=== PATIENT | female | born 1970 | race Caucasian/White ===

== ENCOUNTER 2018-05-25 13:05 | Emergency (ER) | payer BC ==
[2018-05-25 13:17] VITALS: RESP 18
[2018-05-25] MEDS ORDERED: SODIUM CHLORIDE 0.9% 1,000 ML IV STA (13:57)
[2018-05-25] MEDS ORDERED: ONDANSETRON 4 MG/2 ML VIAL IVP STA (13:57)
[2018-05-25] MEDS ORDERED: KETOROLAC 30 MG/ML 1 ML VIAL IVP STA (13:57)
--- NOTE | 2018-05-25 14:00 | ED ---
General Adult HPI - General Chief complaint: Abdominal Pain Stated complaint: Abd Pain Time Seen by Provider: 05/25/18 13:46 Source: patient, RN notes reviewed Mode of arrival: ambulatory Limitations: no limitations - History of Present Illness Initial comments: 47-year-old female with a past medical history of IBS presents to the emergency department for chief complete of right upper quadrant pain 4 days. Patient states this started Friday. She states pain is in the right upper quadrant and sometimes radiates to her back. Patient states the pain is worse after she eats and causes the upper part of her stomach to blow. Patient does admit to s omewhat heavy drinking. States she did drink 2 beers before this occurred Friday. Patient denies any abdominal surgeries besides pyloristenosis surgery when she was 3 months old.Patient has no other complaints at this time including shortness of breath, chest pain,vomiting, headache, or visual changes. - Related Data Home Medications Medication Instructions Recorded Confirmed Ibuprofen [Motrin Ib] 200 mg PO Q6H PRN 05/25/18 05/25/18 Sertraline [Zoloft] 100 mg PO DAILY 05/25/18 05/25/18 Allergies Allergy/AdvReac Type Severity Reaction Status Date / Time latex Allergy Rash/Hives Verified 05/25/18 14:06 gluten AdvReac Severe fatigue/nausea/joint Verified 05/25/18 14:06 pain Review of Systems ROS Statement: Those systems with pertinent positive or pertinent negative responses have been documented in the HPI. ROS Other: All systems not noted in ROS Statement are negative. Past Medical History Additional Past Medical History / Comment(s): IBS History of Any Multi-Drug Resistant Organisms: None Reported Past Surgical History: Heart Catheterization Additional Past Surgical History / Comment(s): PYLORIC STENOSIS REPAIR I NFANT. BILAT EYE SURGERIES FOR LAZY EYE. SALIVARY GLAND REMOVED FROM THROAT- 2000. BILAT SHOULDER SURGERIES FOR BONE SPURS Past Anesthesia/Blood Transfusion Reactions: No Reported Reaction Past Psychological History: Depression Smoking Status: Current every day smoker Past Alcohol Use History: Occasional Past Drug Use History: None Reported General Exam Limitations: no limitations General appearance: alert, in no apparent distress Head exam: Present: atraumatic, normocephalic, normal inspection Eye exam: Present: normal appearance, PERRL, EOMI. Absent: scleral icterus, conjunctival injection ENT exam: Present: normal exam, mucous membranes moist Neck exam: Present: normal inspection, full ROM. Absent: tenderness, meningismus, lymphadenopathy Respiratory exam: Present: normal lung sounds bilaterally. Absent: respiratory distress, wheezes, rales, rhonchi, stridor Cardiovascular Exam: Present: regular rate, normal rhythm, normal heart sounds. Absent: systolic murmur, diastolic murmur, rubs, gallop, clicks GI/Abdominal exam: Present: soft, tenderness (Tenderness in the right upper quadrant with mild guarding, negative Gardner sign significant lower abdominal tenderness), normal bowel sounds. Absent: distended, guarding, rebound, rigid Expanded GI/Abdominal exam: Absent: obturator sign, heel tap sign, Gardner's sign, Rovsing's sign, tenderness at McBurney's Point Neurological exam: Present: alert, oriented X3, CN II-XII intact Psychiatric exam: Present: normal affect, normal mood Course Vital Signs 05/25/18 13:14 Temperature 97.9 F Pulse Rate 88 Respiratory 18 Rate Blood Pressure 124/80 O2 Sat by Pulse 98 Oximetry EKG Findings - EKG Comments: EKG Findings:: Normal sinus rhythm, ventricular rate 75, CO interval 176, QRS temple 82, QTc 442, no evidence of ST elevation or depression Medical Decision Making - Medical Decision Making 47-year-old female with a past medical history of IBS presents to the emergency department for a chief complaint of postprandial right upper quadrant pain 4 days. Sometimes radiates to her back. Pain is worse after eating and states she feels bloated after eating. Also admits to nausea. On exam patient does have right upper quadrant tenderness with minimal epigastric tenderness, no lower abdominal tenderness. CBC CMP unremarkable. Urine does show 14 white blood cells and 12 red blood cells however there are squamous epithelial cells. Will be cultured. X-ray of the abdomen shows nonspecific bowel pattern, no pneumoperitoneum present. Ultrasound of the gallbladder shows a polyp versus n on-shadowing stone in the gallbladder. EKG shows a normal sinus rhythm without evidence of ST elevation or depression. Troponin negative. At this time it is felt that she can follow up outpatient and patient will be referred to GI. She also has an appointment with her primary care doctor in 2 days. She will return here if she has any worsening symptoms. - Lab Data Result diagrams: 05/25/18 13:50 05/25/18 13:50 Lab Results 05/25/18 05/25/18 05/25/18 Range/Units 13:50 13:50 13:50 WBC 6.5 (3.8-10.6) k/uL RBC 4.73 (3.80-5.40) m/uL Hgb 13.2 (11.4-16.0) gm/dL Hct 40.8 (34.0-46.0) % MCV 86.4 (80.0-100.0) fL MCH 27.9 (25.0-35.0) pg MCHC 32.3 (31.0-37.0) g/dL RDW 13.5 (11.5-15.5) % Plt Count 199 (150-450) k/uL Neutrophils % 70 % Lymphocytes % 22 % Monocytes % 5 % Eosinophils % 2 % Basophils % 0 % Neutrophils # 4.5 (1.3-7.7) k/uL Lymphocytes # 1.4 (1.0-4.8) k/uL Monocytes # 0.3 (0-1.0) k/uL Eosinophils # 0.1 (0-0.7) k/uL Basophils # 0.0 (0-0.2) k/uL Sodium 139 (137-145) mmol/L Potassium 3.9 (3.5-5.1) mmol/L Chloride 107 (98-107) mmol/L Carbon Dioxide 24 (22-30) mmol/L Anion Gap 8 mmol/L BUN 10 (7-17) mg/dL Creatinine 0.65 (0.52-1.04) mg/dL Est GFR (CKD-EPI)AfAm >90 (>60 ml/min/1.73 sqM) Est GFR (CKD-EPI)NonAf >90 (>60 ml/min/1.73 sqM) Glucose 121 H (74-99) mg/dL Calcium 9.4 (8.4-10.2) mg/dL Magnesium 1.5 L (1.6-2.3) mg/dL Total Bilirubin 0.4 (0.2-1.3) mg/dL AST 15 (14-36) U/L ALT 17 (9-52) U/L Alkaline Phosphatase 64 (38-126) U/L Troponin I (0.000-0.034) ng/mL Total Protein 6.6 (6.3-8.2) g/dL Albumin 4.1 (3.5-5.0) g/dL Amylase 36 (30-110) U/L Lipase 82 (23-300) U/L Urine Color Yellow Urine Appearance Cloudy H (Clear) Urine pH 6.0 (5.0-8.0) Ur Specific Mellott 1.027 (1.001-1.035) Urine Protein Trace H (Negative) Urine Glucose (UA) Negative (Negative) Urine Ketones Trace H (Negative) Urine Blood Moderate H (Negative) Urine Nitrite Negative (Negative) Urine Bilirubin Negative (Negative) Urine Urobilinogen 4.0 (<2.0) mg/dL Ur Leukocyte Esterase Small H (Negative) Urine RBC 12 H (0-5) /hpf Urine WBC 14 H (0-5) /hpf Ur Squamous Epith Cells 18 H (0-4) /hpf Urine Bacteria Occasional H (None) /hpf Urine Mucus Few H (None) /hpf Urine HCG, Qual (Not Detectd) 05/25/18 05/25/18 Range/Units 13:50 13:50 WBC (3.8-10.6) k/uL RBC (3.80-5.40) m/uL Hgb (11.4-16.0) gm/dL Hct (34.0-46.0) % MCV (80.0-100.0) fL MCH (25.0-35.0) pg MCHC (31.0-37.0) g/dL RDW (11.5-15.5) % Plt Count (150-450) k/uL Neutrophils % % Lymphocytes % % Monocytes % % Eosinophils % % Basophils % % Neutrophils # (1.3-7.7) k/uL Lymphocytes # (1.0-4.8) k/uL Monocytes # (0-1.0) k/uL Eosinophils # (0-0.7) k/uL Basophils # (0-0.2) k/uL Sodium (137-145) mmol/L Potassium (3.5-5.1) mmol/L Chloride (98-107) mmol/L Carbon Dioxide (22-30) mmol/L Anion Gap mmol/L BUN (7-17) mg/dL Creatinine (0.52-1.04) mg/dL Est GFR (CKD-EPI)AfAm (>60 ml/min/1.73 sqM) Est GFR (CKD-EPI)NonAf (>60 ml/min/1.73 sqM) Glucose (74-99) mg/dL Calcium (8.4-10.2) mg/dL Magnesium (1.6-2.3) mg/dL Total Bilirubin (0.2-1.3) mg/dL AST (14-36) U/L ALT (9-52) U/L Alkaline Phosphatase (38-126) U/L Troponin I <0.012 (0.000-0.034) ng/mL Total Protein (6.3-8.2) g/dL Albumin (3.5-5.0) g/dL Amylase (30-110) U/L Lipase (23-300) U/L Urine Color Urine Appearance (Clear) Urine pH (5.0-8.0) Ur Specific Mellott (1.001-1.035) Urine Protein (Negative) Urine Glucose (UA) (Negative) Urine Ketones (Negative) Urine Blood (Negative) Urine Nitrite (Negative) Urine Bilirubin (Negative) Urine Urobilinogen (<2.0) mg/dL Ur Leukocyte Esterase (Negative) Urine RBC (0-5) /hpf Urine WBC (0-5) /hpf Ur Squamous Epith Cells (0-4) /hpf Urine Bacteria (None) /hpf Urine Mucus (None) /hpf Urine HCG, Qual Not Detected (Not Detectd) - EKG Data -: EKG Interpreted by Me (and Dr Hobbs) Disposition Clinical Impression: Abdominal pain Disposition: HOME SELF-CARE Condition: Good Instructions (If sedation given, give patient instructions): Abdominal Pain (ED) Additional Instructions: Please follow up with primary care at your appointment in 2 days as well as GI. Please return to the emergency department if you have any worsening symptoms. Is patient prescribed a controlled substance at d/c from ED?: No Referrals: Hellen Alves MD [Primary Care Provider] - 1-2 days Blake Mathews MD [STAFF PHYSICIAN] - 1-2 days Time of Disposition: 15:36
[2018-05-25 14:19] LABS: Basophils % (A) 0 %; Eosinophils # (A) 0.1 k/uL (0-0.7); Eosinophils % (A) 2 %; HCT 40.8 % (34.0-46.0); HGB 13.2 gm/dL (11.4-16.0); Lymphocytes # (A) 1.4 k/uL (1.0-4.8); Lymphocytes % (A) 22 %; MCH 27.9 pg (25.0-35.0); MCHC 32.3 g/dL (31.0-37.0); MCV 86.4 fL (80.0-100.0); Mean Platelet Volume 7.5; Monocytes # (A) 0.3 k/uL (0-1.0); Monocytes % (A) 5 %; Neutrophils # (A) 4.5 k/uL (1.3-7.7); Neutrophils % (A) 70 %; Platelet Count 199 k/uL (150-450); RBC 4.73 m/uL (3.80-5.40); RDW 13.5 % (11.5-15.5); WBC 6.5 k/uL (3.8-10.6)
[2018-05-25 14:26] LABS: Appearance,Urine Cloudy (Clear); Bacteria,Urine Occasional /hpf; Bilirubin,Urine Negative (Negative); Blood,Urine Moderate (Negative); Color,Urine Yellow; Glucose,Urine (UA) Negative (Negative); Ketones,Urine Trace (Negative); Leukocyte Esterase,Urine Small (Negative); Mucus,Urine Few /hpf; Nitrite,Urine Negative (Negative); Protein,Urine Trace (Negative); RBC,Urine 12 /hpf (0-5); Specific Gravity,Urine 1.027 (1.001-1.035); Squamous Epithelial Cell,Urine 18 /hpf (0-4); WBC,Urine 14 /hpf (0-5)
[2018-05-25 14:28] LABS: ALT 17 U/L (9-52); AST 15 U/L (14-36); Albumin 4.1 g/dL (3.5-5.0); Alkaline Phosphatase 64 U/L (38-126); Amylase 36 U/L (30-110); Anion Gap 8 mmol/L; Blood Urea Nitrogen 10 mg/dL (7-17); Calcium 9.4 mg/dL (8.4-10.2); Carbon Dioxide 24 mmol/L (22-30); Chloride 107 mmol/L (98-107); Glucose 121 mg/dL (74-99); Lipase 82 U/L (23-300); Magnesium 1.5 mg/dL (1.6-2.3); Potassium 3.9 mmol/L (3.5-5.1); Sodium 139 mmol/L (137-145); Total Bilirubin 0.4 mg/dL (0.2-1.3); Total Protein 6.6 g/dL (6.3-8.2)
--- NOTE | 2018-05-25 14:45 | XR ---
EXAMINATION TYPE: XR abdomen 2V DATE OF EXAM: 05/25/2018 COMPARISON: NONE HISTORY: Pain TECHNIQUE: One view abdominal series FINDINGS: The osseous structures are intact. The bowel gas pattern is nonspecific. Lung bases are clear. Ther e is a 3 mm right upper quadrant calcification. Calcifications in the pelvis are nonspecific but felt to BE most likely vascular phleboliths. IMPRESSION: 1. Nonspecific abdomen. 2. 3 mm right upper quadrant calcification most likely in the basis of a renal calculus. Correlate cl inically.
--- NOTE | 2018-05-25 15:11 | US ---
EXAMINATION TYPE: US abdomen limited DATE OF EXAM: 05/25/2018 COMPARISON: NONE CLINICAL HISTORY: post prandial RUQ pain. abd pain x 3 days EXAM MEASUREMENTS: Liver Length: 19.3 cm Gallbladder Wall: 0.1 cm CBD: 0.6 cm Right Kidney: 11.1 x 4.5 x 4.6 cm Pancreas: wnl Liver: wnl Gallbladder: 0.3cm non shadowing, non mobile fundal polyp seen Evidence for sonographic Gardner's sign: no CBD: wnl Right Kidney: wnl IMPRESSION: Nonshadowing 3 mm echogenic structure within the gallbladder most likely related to a philip yp rather than nonshadowing stone. Correlate clinically.
[2018-05-25] MEDS ORDERED: ACET/COD 300 MG/30 MG STARTER PACK 6 TAB BTL PO STA (15:59)
[2018-05-25 16:09] VITALS: BP 131/79; PULSE 67; TEMP 98.2
== END 2018-05-25 16:07 | disposition home or self-care (01) ==
LOC: EC 13:05
DX: R10.11 Right upper quadrant pain (principal); R11.0 Nausea; R10.811 Right upper quadrant abdominal tenderness; R10.816 Epigastric abdominal tenderness; F17.200 Nicotine dependence, unspecified, uncomplicated; F32.9 Major depressive disorder, single episode, unspecified; Z79.899 Other long term (current) drug therapy; Z91.040 Latex allergy status; Z91.048 Other nonmedicinal substance allergy status; Z95.5 Presence of coronary angioplasty implant and graft
CPT/HCPCS: 36415; 93005; 80053; 82150; 83690; 83735; 84484; 85025; 81001; 81025; 87086; 74019; 76705; 99284; 96374; 96375; 96361; J2405; J1885

== ENCOUNTER → 2019-03-15 | Outpatient (CLI) | payer BC ==
--- NOTE | 2019-03-15 11:32 | XR ---
EXAMINATION TYPE: XR chest 2V DATE OF EXAM: 03/15/2019 COMPARISON: Prior chest x-ray 11/03/2015 HISTORY: Cough, right shoulder pain TECHNIQUE: Frontal and lateral views of the chest are obtained. FINDINGS: There is no focal air space opacity, pleural effusion, or pneumothorax seen. The cardiac silhouette size is within normal limits. The osseous structures are intact. Surgical clips present in the right upper quadrant. IMPRESSION: No acute cardiopulmonary process.
== END ==
LOC: RADXRMAIN 09:54
PROVIDERS: ATTEND Family Medicine
DX: R05 Cough (principal)
CPT/HCPCS: 71046

== ENCOUNTER → 2020-03-09 | Outpatient (CLI) | payer BC ==
--- NOTE | 2020-03-09 11:02 | US ---
EXAMINATION TYPE: US kidneys/renal and bladder DATE OF EXAM: 03/09/2020 COMPARISON: CLINICAL HISTORY: N20.1 CALCULUS OF URETER. Right side pain. patient states having a stone in tube. EXAM MEASUREMENTS: Right Kidney: 10.3 x 4.4 x 4.8 cm Left Kidney: 10.8 x 4.7 x 4.7 cm Right Kidney: medial anechoic lesion visualized, dilated renal pelvis vs mild hydronephrosis. Left Kidney: medial anechoic lesion visualized, dilated renal pelvis vs mild hydronephrosis. Bladder: mildly distended, wnl Bilateral Jets seen There is mild fullness right renal pelvis. [id number] fullness left renal pelvis with calyceal prominence. No nephrolithiasis is seen bilaterally. No masses are identified and images saved. The urinary bladder is not greatly distended. Bilateral ureteral jets are seen. IMPRESSION: Mild to moderate left greater than right hydronephrosis suspected. No complete obstructio n as bilateral distal ureter jets are seen. Consider follow-up functional study or CT evaluation.
== END | disposition home or self-care (01) ==
LOC: RADUSWWP 09:22
PROVIDERS: ATTEND Urology
DX: N20.1 Calculus of ureter (principal)
CPT/HCPCS: 76770

== ENCOUNTER → 2020-03-20 | Outpatient (CLI) | payer BC ==
--- NOTE | 2020-03-20 11:55 | CT ---
EXAMINATION TYPE: CT abdomen pelvis wo con DATE OF EXAM: 03/20/2020 COMPARISON: None HISTORY: Calculus of ureter CT DLP: 423.8 mGycm Examination of the solid and hollow viscera is limited given the lack of contrast. FINDINGS: LUNG BASES: No evidence for nodule. No evidence for infiltrate. LIVER/GB: The gallbladder is unremarkable. No space-occupying hepatic lesion. PANCREAS: No pancreatic mass identified. No inflammatory process seen. SPLEEN: No evidence for splenomegaly. No intrasplenic lesions seen. ADRENALS: No adrenal nodules identified. No evidence for thickening. KIDNEYS: No evidence for renal mass. 5.3 mm calculus proximal right ureter just distal to the right U PJ with mild right-sided hydronephrosis suggested. 3 mm nonobstructing calculus lower pole left kidne y. No evidence for left-sided hydronephrosis. BOWEL: Appendix has a normal appearance. No evidence of bowel obstruction. No inflammatory process. Lymph nodes: No evidence for adenopathy greater than 1 cm. Abdominal aorta: Atheromatous changes seen. No evidence for aneurysm. Genital organs: No significant abnormality. Other: No significant abnormality. IMPRESSION: 5.3 mm calculus proximal right ureter just distal to the right UPJ with mild right-sided hydronephros is suggested. 3 mm nonobstructing calculus lower pole left kidney.
== END | disposition home or self-care (01) ==
LOC: RADCTMAIN 11:17
PROVIDERS: ATTEND Urology
DX: N20.1 Calculus of ureter (principal); N20.0 Calculus of kidney; Z91.040 Latex allergy status; Z88.8 Allergy status to other drugs, medicaments and biological substances; Z91.018 Allergy to other foods
CPT/HCPCS: 74176

== ENCOUNTER → 2020-04-13 | Outpatient (CLI) | payer BC, OTHER ==
[2020-04-13 10:25] LABS: African American GFR (CKD) >90 (>60 ml/min/1.73 sqM); Anion Gap 8 mmol/L; Blood Urea Nitrogen 15 mg/dL (7-17); Carbon Dioxide 27 mmol/L (22-30); Chloride 101 mmol/L (98-107); Glucose 95 mg/dL (74-99); Non-African American GFR(CKD) 80 (>60 ml/min/1.73 sqM); Potassium 5.4 mmol/L (3.5-5.1); Sodium 136 mmol/L (137-145)
[2020-04-13 10:34] LABS: Appearance,Urine Clear (Clear); Bilirubin,Urine Negative (Negative); Blood,Urine Small (Negative); Color,Urine Yellow; Glucose,Urine (UA) Negative (Negative); Ketones,Urine Negative (Negative); Leukocyte Esterase,Urine Negative (Negative); Mucus,Urine Occasional /hpf; Nitrite,Urine Negative (Negative); Protein,Urine Negative (Negative); RBC,Urine 15 /hpf (0-5); Squamous Epithelial Cell,Urine 2 /hpf (0-4); Urobilinogen,Urine <2.0 mg/dL (<2.0); WBC,Urine 4 /hpf (0-5)
[2020-04-13 10:36] LABS: Basophils # (A) 0.1 k/uL (0-0.2); Basophils % (A) 1 %; Eosinophils # (A) 0.1 k/uL (0-0.7); Eosinophils % (A) 2 %; HCT 44.8 % (34.0-46.0); HGB 14.6 gm/dL (11.4-16.0); Lymphocytes # (A) 1.7 k/uL (1.0-4.8); Lymphocytes % (A) 26 %; MCH 29.2 pg (25.0-35.0); MCHC 32.5 g/dL (31.0-37.0); MCV 89.8 fL (80.0-100.0); Mean Platelet Volume 7.7; Monocytes # (A) 0.4 k/uL (0-1.0); Monocytes % (A) 6 %; Neutrophils # (A) 4.1 k/uL (1.3-7.7); Neutrophils % (A) 64 %; Platelet Count 200 k/uL (150-450); RBC 4.99 m/uL (3.80-5.40); RDW 13.2 % (11.5-15.5); WBC 6.5 k/uL (3.8-10.6)
== END | disposition home or self-care (01) ==
LOC: LABPAT 09:45
PROVIDERS: ATTEND Urology
DX: Z01.818 Encounter for other preprocedural examination (principal); N20.1 Calculus of ureter; R31.29 Other microscopic hematuria
CPT/HCPCS: 36415; 80048; 81001; 85025; 87086

== ENCOUNTER 2020-04-20 10:44 | Day surgery (SDC) | payer BC, OTHER ==
[2020-04-14 16:08] VITALS: BMI 25.8
--- NOTE | 2020-04-19 13:37 | P.HPIHPCON ---
History of Present Illness H&P Date: 04/19/20 49-year-old female with history of a 5 mm right-sided proximal stone. Multiple small left renal stone. She has failed medical expulsive therapy for her stone. Discussed with her the option of doing a ureteroscopy versus ESWL. Discussed the risk and benefit of each approach. She agreed to proceed right-sided ureteroscopy. She also wanted her left-sided renal stones addressed, I did discussed with her the stones are fairly small and most likely she will be able to pass spontaneously. Discussed that we'll attempt to do a left-sided ureteroscopy in the same setting. Discussed with her the risk of the procedure which includes but not limited to bleeding, infection, injury to the ureter Consent for Procedure: I have explained the operation/procedure to the patient, including the risks, benefits, side effects, alternative therapies (including not receiving the proposed treatment or service), the likelihood of the patient achieving his/her goals, and potential recuperation problems for the procedure/sedation/analgesia, as well as any blood products, if indicated. I also explained to the patient the risks, benefits and side effects of the alternatives, as well as the risks related to not receiving the proposed procedure, care, treatment, or services. Past Medical History Additional Past Medical History / Comment(s): IBS. KIDNEY STONES History of Any Multi-Drug Resistant Organisms: None Reported Past Surgical History: Cholecystectomy, Heart Catheterization Additional Past Surgical History / Comment(s): PYLORIC STENOSIS REPAIR INFANT. BILAT EYE SURGERIES FOR LAZY EYE. SALIVARY GLAND REMOVED FROM THROAT- 2000. BILAT SHOULDER SURGERIES FOR BONE SPURS. COLONOSCOPY Past Anesthesia/Blood Transfusion Reactions: No Reported Reaction Smoking Status: Current every day smoker - Past Family History Mother Family Medical History: No Reported History Medications and Allergies Home Medications Medication Instructions Recorded Confirmed Type Ibuprofen [Motrin Ib] 200 mg PO Q6H PRN 05/25/18 04/14/20 History Sertraline [Zoloft] 100 mg PO DAILY 05/25/18 04/14/20 History Allergies Allergy/AdvReac Type Severity Reaction Status Date / Time latex Allergy Rash/Hives Verified 04/14/20 15:53 tamsulosin [From Flomax] Allergy FACIAL Verified 04/14/20 15:53 SWELLING AND SLURRING SPEECH gluten AdvReac Severe fatigue/nausea/joint Verified 04/14/20 15:53 pain Surgical - Exam - General well developed, well nourished, no distress, no pain - Respiratory normal expansion, normal respiratory effort - Abdomen Abdomen: soft, non tender Assessment and Plan Assessment: OR for right-sided ureteroscopy, holmium laser lithotripsy, stone basketing and stent insertion. Possible left-sided ureteroscopy with holmium laser and stent placement
[~2020-04-20 10:44] MED LIST: DEXAMETHASONE SOD PHOSPHATE 4 MG/ML 1 ML VIAL IV ONE; HYDROmorphone 0.5 MG/0.5 ML SYRINGE IVP PRN; LACTATED RINGERS 1,000 ML IV SCH; LIDOCAINE 1% (10MG/ML) FOR IV START INTRADERMA PRN; ONDANSETRON 4 MG/2 ML VIAL IVP ONE; SCOPOLAMINE 1.5MG/72HR PATCH TRANSDERM ONE
[2020-04-20 11:19] VITALS: TEMP 98.6
--- NOTE | 2020-04-20 11:32 | XR ---
EXAMINATION TYPE: XR KUB DATE OF EXAM: 04/20/2020 COMPARISON: 05/25/2018 HISTORY: Rt. upper quadrant pain TECHNIQUE: One view abdominal series FINDINGS: The osseous structures are intact. The bowel gas pattern is nonspecific. There is a 3 mm calcificati on overlying the right transverse process of L3. Calcifications in pelvis are likely vascular. Surgic al clips in the right upper quadrant. Hypertrophic change of the spine. IMPRESSION: 1. Mid right ureteral calculus measuring 3 mm.
[2020-04-20] MEDS ORDERED: LIDOCAINE 1% INJ 10MG/ML (20 ML MDV) ONE (13:20)
[2020-04-20] MEDS ORDERED: SUCCINYLCHOLINE CHLORIDE 100 MG/5 ML SYR IV ONE (13:20)
[2020-04-20] MEDS ORDERED: MIDAZOLAM 2 MG/2 ML VIAL ONE (13:20)
[2020-04-20] MEDS ORDERED: fentaNYL (PF) 50 MCG/ML 2 ML AMP ONE (13:20)
[2020-04-20] MEDS ORDERED: PROPOFOL 10 MG/ML 20 ML VIAL IV ONE (13:20)
[2020-04-20] MEDS ORDERED: IOPAMIDOL-370 50ML BTL MISCELLANE ONE (13:52)
--- NOTE | 2020-04-20 14:56 | P.OP ---
Date of Procedure: 04/20/20 Preoperative Diagnosis: right ureteral calculi Postoperative Diagnosis: same Procedure(s) Performed: cystoscopy, right ureteroscopy, holmium laser lithotripsy and stone basketting and stent placement Implants: 6 Fr X 26 cm stent placement Anesthesia: MELQUIADES Surgeon: Benedict Mercado Estimated Blood Loss (ml): 5 Pathology: other (right ureteral stone) Condition: stable Disposition: PACU Indications for Procedure: 49-year-old female with history of a 5 mm right-sided proximal stone. Multiple small left renal stone. She has failed medical expulsive therapy for her stone. Discussed with her the option of doing a ureteroscopy versus ESWL. Discussed the risk and benefit of each approach. She agreed to proceed right-sided ureteroscopy. She also wanted her left-sided renal stones addressed, I did discussed with her the stones are fairly small and most likely she will be able to pass spontaneously. Discussed that we'll attempt to do a left-sided ureteroscopy in the same setting. Discussed with her the risk of the procedure which includes but not limited to bleeding, infection, injury to the ureter Operative Findings: Right proximal ureteral stone Description of Procedure: She was brought to the operating room, general anesthesia was induced. She was prepped and draped in sterile fashion a placement dorsal lithotomy position. Cystoscopy fitted with a 21-Belizean sheath was inserted per urethra, cystoscopy was performed which showed no abnormality within the bladder. Attention was then carried to the right ureteral orifice which was intubated with a 6-Belizean open-ended catheter, retrograde pyelogram was performed which showed a filling defect at the proximal ureter with proximal hydroureteronephrosis. At this time the catheter was removed and a semirigid ureteroscope was inserted per urethra, and the ureteroscope was advanced up the urethra and up the right ureteral orifice, I was able to advance the scope to the mid ureter but was not able to advance the scope to the level of the stone. At this time a sensor wire was advanced through the ureteroscope and the ureteroscope was withdrawn with the wire in place. Next a 1113 [place]an access sheath was passed over the wire under fluoroscopy into the proximal ureter. The flexible ureteroscope was inserted through the access sheath and the stone was visualized. Using the holmium laser the stone was fragmented into small fragments, stone fragments were removed and sent to pathology. Renoscopy was performed which showed no additional stones within the kidney or any stone fragments. Pullback ureteroscopy was performed showed no injury to the ureter or ureteral stone. A sensor wire was advanced through the ureteroscope and the ureteroscope was withdrawn with the wire in place. Next a ureteral stent was passed over the wire. Proximal curl was visualized on fluoroscopy and distal curl visualized using the cystoscope. Next a cystoscope was inserted per urethra and the left ureteral orifice was intubated with a sensor wire. I then attempted to advance the ureteroscope over the wire but resistance was met at the UVJ. Next I passed an 11 x 13 access sheath over the wire under fluoroscopy but resistance was met at the distal ureter. Given that the stones on the left side are fairly small all less than 3 mm and nonobstructive decision was made not to dilate the ureter, this was discussed with patient in preop. The bladder was emptied at the end case. The patient started the procedure well was taken to PACU in stable condition
--- NOTE | 2020-04-20 15:06 | FL ---
EXAMINATION TYPE: FL guidance operating room DATE OF EXAM: 04/20/2020 HISTORY: Fluoroscopy time 1 minute and 1 seconds of fluoroscopy provided. IMPRESSION: 1. Fluoroscopy time.
[2020-04-20] MEDS ORDERED: LACTATED RINGERS 1,000 ML IV ONE (15:21)
[2020-04-20 15:33] VITALS: RESP 16
[2020-04-20 16:26] VITALS: BP 169/78; PULSE 80
== END 2020-04-20 16:35 | disposition home or self-care (01) ==
LOC: OR 10:44
PROVIDERS: ATTEND Urology
DX: N20.1 Calculus of ureter (principal); Z87.442 Personal history of urinary calculi; K58.9 Irritable bowel syndrome, unspecified; Z90.49 Acquired absence of other specified parts of digestive tract; Z98.890 Other specified postprocedural states; F17.200 Nicotine dependence, unspecified, uncomplicated; Z79.899 Other long term (current) drug therapy; Z88.8 Allergy status to other drugs, medicaments and biological substances; Z91.02 Food additives allergy status; Z91.040 Latex allergy status; F41.9 Anxiety disorder, unspecified; F32.9 Major depressive disorder, single episode, unspecified
CPT/HCPCS: 74018; 82365; 84132; 84703

== ENCOUNTER → 2020-06-14 | Outpatient (CLI) | payer BC, OTHER ==
--- NOTE | 2020-06-15 06:44 | US ---
EXAMINATION TYPE: US kidneys/renal and bladder DATE OF EXAM: 06/14/2020 COMPARISON: CT March 20, 2020. Renal ultrasound March 09, 2020 CLINICAL HISTORY: N20.1 Calculus of ureter. hx renal stones. No pain. EXAM MEASUREMENTS: Right Kidney: 10.1 x 5.2 x 4.3 cm Left Kidney: 9.7 x 4.5 x 4.8 cm Right Kidney: mild hydronephrosis vs dilated renal pelvis Left Kidney: Mild hydronephrosis vs dilated renal pelvis Bladder: distended, anechoic Bilateral Jets not seen There is stable mild fullness to bilateral renal pelvises with some right-sided calyceal dilatation. Tiny nonobstructing renal calculi on CT less well seen on plain films. No masses are identified on i mages saved. The urinary bladder is satisfactorily distended. Bilateral ureteral jets are not seen. IMPRESSION: Stable mild right-sided hydronephrosis. Stable left-sided extrarenal pelvis. No significa nt change from prior studies.
== END | disposition home or self-care (01) ==
LOC: RADUSWWP 15:21
PROVIDERS: ATTEND Urology
DX: N13.30 Unspecified hydronephrosis (principal)
CPT/HCPCS: 76770

== ENCOUNTER 2020-11-21 19:12 | Emergency (ER) | payer BC, OTHER ==
[2020-11-21 19:33] VITALS: TEMP 98
--- NOTE | 2020-11-21 20:21 | XR ---
EXAMINATION TYPE: XR ankle complete LT DATE OF EXAM: 11/21/2020 COMPARISON: NONE HISTORY: Ankle pain TECHNIQUE: 3 views FINDINGS: Ankle mortise is anatomic. I see no fracture nor dislocation. IMPRESSION: Negative left ankle exam.
--- NOTE | 2020-11-21 20:49 | ED ---
General Adult HPI - General Chief complaint: Extremity Injury, Lower Stated complaint: foot pain Time Seen by Provider: 11/21/20 19:57 Source: patient, RN notes reviewed Mode of arrival: wheelchair - History of Present Illness Initial comments: 50-year-old female presents to the emergency room for a chief complaint of left foot pain. Patient states she was walking and she hit her foot on the leg of a rocking chair. Patient states that now it is painful to bear weight on it. Patient denies any other injuries or falls. Denies fevers or chills.Patient has no other complaints at this time including shortness of breath, chest pain, abdominal pain, nausea or vomiting, headache, or visual changes. - Related Data Home Medications Medication Instructions Recorded Confirmed Ibuprofen [Motrin Ib] 200 mg PO Q6H PRN 05/25/18 04/20/20 Sertraline [Zoloft] 100 mg PO DAILY 05/25/18 04/20/20 Previous Rx's Medication Instructions Recorded Ibuprofen 600 mg PO Q8H PRN #30 tab 04/20/20 Allergies Allergy/AdvReac Type Severity Reaction Status Date / Time latex Allergy Rash/Hives Verified 11/21/20 19:33 tamsulosin [From Flomax] Allergy FACIAL Verified 11/21/20 19:33 SWELLING AND SLURRING SPEECH Review of Systems ROS Statement: Those systems with pertinent positive or pertinent negative responses have been documented in the HPI. ROS Other: All systems not noted in ROS Statement are negative. Past Medical History Additional Past Medical History / Comment(s): IBS History of Any Multi-Drug Resistant Organisms: None Reported Past Surgical History: Heart Catheterization Additional Past Surgical History / Comment(s): PYLORIC STENOSIS REPAIR . BILAT EYE SURGERIES FOR LAZY EYE. SALIVARY GLAND REMOVED FROM THROAT- 2000. BILAT SHOULDER SURGERIES FOR BONE SPURS Past Anesthesia/Blood Transfusion Reactions: No Reported Reaction Past Psychological History: Depression Past Alcohol Use History: Occasional Past Drug Use History: None Reported General Exam General appearance: alert, in no apparent distress Head exam: Present: atraumatic Eye exam: Present: normal appearance, PERRL, EOMI. Absent: scleral icterus, conjunctival injection ENT exam: Present: normal exam, mucous membranes moist Neck exam: Present: normal inspection, full ROM. Absent: tenderness Respiratory exam: Present: normal lung sounds bilaterally. Absent: respiratory distress, wheezes Cardiovascular Exam: Present: regular rate, normal rhythm, normal heart sounds Extremities exam: Present: full ROM (Full range of motion of the left foot and ankle.), tenderness (Tenderness to the dorsolateral aspect of the left foot. No tenderness of the fifth metatarsal. No lateral malleolus tenderness.), normal capillary refill (Capillary refill less than 2 seconds, DP pulse 2+ in the left lower extremity), other (Sensation intact before extremity). Absent: pedal edema, joint swelling, calf tenderness Course Vital Signs 11/21/20 19:30 Temperature 98.0 F Pulse Rate 75 Respiratory 19 Rate Blood Pressure 146/80 O2 Sat by Pulse 95 Oximetry Medical Decision Making - Medical Decision Making Vitals are stable. X-ray of the foot and ankle show no acute fracture. She likely has a contusion of the foot given mechanism of injury. At this time recommend Motrin and Tylenol for pain as well as rest ice and elevating the injury. She was given a fracture shoe to better distribute weight over the foot. She has crutches at home. If symptoms do not improve she will follow-up with orthopedics. Disposition Clinical Impression: Foot pain, left, Contusion of foot Disposition: HOME SELF-CARE Condition: Good Instructions (If sedation given, give patient instructions): Foot Contusion (ED) Additional Instructions: Please take Motrin and Tylenol for pain. Rest ice and elevate the foot. Use crutches as needed as well as fracture shoe. Follow-up with orthopedics if symptoms are not improving. Return to the emergency room for any worsening symptoms. Is patient prescribed a controlled substance at d/c from ED?: No Referrals: Hellen Alves MD [Primary Care Provider] - 1-2 days Isaac Jaime DO [Doctor of Osteopathic Medicine] - 1-2 days Time of Disposition: 22:13
--- NOTE | 2020-11-21 21:18 | XR ---
EXAMINATION TYPE: XR foot complete LT DATE OF EXAM: 11/21/2020 COMPARISON: NONE HISTORY: Foot pain TECHNIQUE: 3 views FINDINGS: Metatarsals appear intact. I see no fracture nor dislocation. Joint spaces are normal. IMPRESSION: Negative left foot exam. No fracture.
[2020-11-21 22:32] VITALS: BP 136/77; PULSE 74; RESP 16
== END 2020-11-21 22:31 | disposition home or self-care (01) ==
LOC: EC 19:12
DX: S90.32XA Contusion of left foot, initial encounter (principal); W22.03XA Walked into furniture, initial encounter; Y93.01 Activity, walking, marching and hiking; Z91.040 Latex allergy status; Z88.8 Allergy status to other drugs, medicaments and biological substances
CPT/HCPCS: 99283

== ENCOUNTER → 2020-12-20 | Outpatient (CLI) | payer BC, OTHER ==
--- NOTE | 2020-12-20 09:42 | US ---
EXAMINATION TYPE: US kidneys/renal and bladder DATE OF EXAM: 12/20/2020 COMPARISON: 06/14/2020 CLINICAL HISTORY: N13.30 hydronephrosis. hydronephrosis EXAM MEASUREMENTS: Right Kidney: 10.3 x 4.1 x 3.8 cm Left Kidney: 10.9 x 4.8 x 4.3 cm Right Kidney: dilated renal pelvis Left Kidney: dilated renal pelvis Bladder: not fully distended, appears wnl Bilateral Jets seen: no IMPRESSION: Mild prominence of the renal pelves, mild hydronephrosis can be considered. This appears somewhat dim inished from the comparison.
== END | disposition home or self-care (01) ==
LOC: RADUSWWP 09:00
PROVIDERS: ATTEND Urology
DX: N13.30 Unspecified hydronephrosis (principal)
CPT/HCPCS: 76770

== ENCOUNTER 2022-07-15 21:39 | Emergency (ER) | payer OTHER ==
[2022-07-15 21:55] VITALS: RESP 18; TEMP 98.4
[2022-07-15] MEDS ORDERED: SODIUM CHLORIDE 0.9% 1,000 ML IV STA (22:07)
[2022-07-15] MEDS ORDERED: NITROGLYCERIN SL TABS 0.4 MG TAB SUBLINGUAL STA (22:07)
[2022-07-15 22:15] LABS: Basophils % (A) 1 %; Eosinophils % (A) 1 %; HGB 12.1 gm/dL (11.4-16.0); Lymphocytes # (A) 1.9 k/uL (1.0-4.8); Lymphocytes % (A) 25 %; MCHC 32.7 g/dL (31.0-37.0); MCV 85.5 fL (80.0-100.0); Monocytes # (A) 0.4 k/uL (0-1.0); Monocytes % (A) 5 %; Neutrophils % (A) 67 %; Platelet Count 156 k/uL (150-450); RBC 4.32 m/uL (3.80-5.40); RDW 13.7 % (11.5-15.5); WBC 7.5 k/uL (3.8-10.6)
[2022-07-15 22:25] LABS: ALT 30 U/L (4-34); AST 28 U/L (14-36); African American GFR (CKD) >90 (>60 ml/min/1.73 sqM); Albumin 4.3 g/dL (3.5-5.0); Alkaline Phosphatase 79 U/L (38-126); Anion Gap 10 mmol/L; Blood Urea Nitrogen 19 mg/dL (7-17); Calcium 10.2 mg/dL (8.4-10.2); Carbon Dioxide 24 mmol/L (22-30); Chloride 105 mmol/L (98-107); Glucose 112 mg/dL (74-99); Magnesium 1.5 mg/dL (1.6-2.3); Non-African American GFR(CKD) 81 (>60 ml/min/1.73 sqM); Potassium 3.6 mmol/L (3.5-5.1); Sodium 139 mmol/L (137-145); Total Bilirubin 0.4 mg/dL (0.2-1.3); Total Protein 6.6 g/dL (6.3-8.2)
--- NOTE | 2022-07-15 22:29 | XR ---
EXAMINATION TYPE: XR chest 2V DATE OF EXAM: 07/15/2022 COMPARISON: 03/26/2022 INDICATION: Chest pain TECHNIQUE: Frontal and lateral views of the chest are obtained. FINDINGS: The heart size is normal. The pulmonary vasculature is normal. The lungs are clear. IMPRESSION: 1. No acute pulmonary process.
[2022-07-15 22:30] LABS: Partial Thromboplastin Time 23.5 sec (22.0-30.0); Prothrombin Time 10.3 sec (9.0-12.0)
--- NOTE | 2022-07-15 23:19 | ED ---
General Adult HPI - General Chief complaint: Chest Pain Stated complaint: Chest Pain Time Seen by Provider: 07/15/22 21:55 Source: patient, EMS, RN notes reviewed, old records reviewed Mode of arrival: EMS Limitations: no limitations - History of Present Illness Initial comments: Patient is a 51-year-old female with past medical history remarkable for prior cardiac stent placed in March 2022, fibromyalgia, hypertension and presents emergency Department with multiple complaints. She states she is worried about a blood clot in her leg but denies any swelling. Has some posterior left-sided back pain and thigh pain. Denies any calf pain. Denies any shortness of breath. Did have sudden onset chest pain started at 9:30 PM this evening. It is mostly resolved. Was reproducible on palpation and with movement. She was given Zofran as well as 324 Herb specimen by EMS. States she did feel nauseous when it this occurred at 9:30, as well as felt diaphoretic after she had one episode of dry heaves. Symptoms are mostly resolved at this time. Presents for further evaluation of a concern for cardiac issues. States the pain was located substernally and was an achy sensation.. With Dr. Bai in the office for cardiology. - Related Data Home Medications Medication Instructions Recorded Confirmed RX: Pregabalin [Lyrica] 300 mg PO HS 03/26/22 07/15/22 Clopidogrel [Plavix] 75 mg PO DAILY 07/15/22 07/15/22 Sertraline [Zoloft] 100 mg PO DAILY 07/15/22 07/15/22 Previous Rx's Medication Instructions Recorded RX: Aspirin 81 mg PO DAILY #30 tab 03/28/22 RX: Atorvastatin [Lipitor] 40 mg PO HS #30 tab 03/28/22 Allergies Allergy/AdvReac Type Severity Reaction Status Date / Time amlodipine [From Norvasc] Allergy Swelling - Verified 07/15/22 22:19 face latex Allergy Rash/Hives Verified 07/15/22 22:19 losartan [From Cozaar] Allergy Swelling - Verified 07/15/22 22:19 face tamsulosin [From Flomax] Allergy FACIAL Verified 07/15/22 22:19 SWELLING AND SLURRING SPEECH buspirone [From BuSpar] AdvReac Increased Verified 07/15/22 22:19 Anxiety lisinopril AdvReac Cough Verified 07/15/22 22:19 Review of Systems ROS Statement: Those systems with pertinent positive or pertinent negative responses have been documented in the HPI. Review of Systems: CONST: Denies fever EYES: Denies blurry vision ENT: Denies nasal congestion C/V: Endorses chest pain RESP: Denies shortness of breath GI: Denies abdominal pain : Denies dysuria SKIN: Denies rash. MSK: Denies joint pain. NEURO: Denies headache ROS Other: All systems not noted in ROS Statement are negative. Past Medical History Past Medical History: Fibromyalgia, Hypertension Additional Past Medical History / Comment(s): IBS History of Any Multi-Drug Resistant Organisms: None Reported Past Surgical History: Heart Catheterization Additional Past Surgical History / Comment(s): PYLORIC STENOSIS REPAIR INFANT. BILAT EYE SURGERIES FOR LAZY EYE. SALIVARY GLAND REMOVED FROM THROAT- 2000. BILAT SHOULDER SURGERIES FOR BONE SPURS Past Anesthesia/Blood Transfusion Reactions: No Reported Reaction Past Psychological History: Depression Smoking Status: Current every day smoker Past Alcohol Use History: Occasional Past Drug Use History: None Reported General Exam - General Exam Comments Initial Comments: General: Appears in no acute distress. HEAD: Normal with no signs of head trauma. EYES: PERRLA, EOMI, conjunctiva normal, no discharge. ENT: Hearing grossly intact, normal oropharynx. RESPIRATORY: Clear breath sounds bilaterally. No wheezes, rales, or rhonchi. C/V: Regular rate and rhythm. S1 and S2 auscultated, no edema, peripheral pulses 2+ and intact throughout. Substernal chest pain somewhat reproducible on palpation. ABD: Abd is soft, nontender, nondistended EXT: Normal range of motion, no obvious deformity SKIN: Bruising over bilateral shins. NEURO: Alert and oriented 4. Limitations: no limitations Course Vital Signs 07/15/22 07/15/22 21:48 23:29 Temperature 98.4 F Pulse Rate 104 H 90 Respiratory 18 18 Rate Blood Pressure 153/86 122/74 O2 Sat by Pulse 97 Oximetry Medical Decision Making - Medical Decision Making Was pt. sent in by a medical professional or institution (, PA, TRAIN DIRECTOR, urgent care, hospital, or correction...) When possible be specific @ -No Did you speak to anyone other than the patient for history (EMS, parent, family, police, friend...)? What history was obtained from this source @ -No Did you review nursing and triage notes (agree or disagree)? Why? @ -I reviewed and agree with nursing and triage notes Were old charts reviewed (outside hosp., previous admission, EMS record, old EKG, old radiological studies, urgent care reports/EKG's, correction records)? Report findings @ -Charts from March 2022 reviewed Differential Diagnosis (chest pain, altered mental status, abdominal pain women, abdominal pain men, vaginal bleeding, weakness, fever, dyspnea, syncope, headache, dizziness, GI bleed, back pain, seizure, CVA, palpatations, mental health, musculoskeletal)? @ -Differential Chest Pain: Stable Angina, Unstable Angina, STEMI, NSTEMI Aortic Dissection, Pneumothorax, Musculoskeletal, Esophageal Spasm GERD, Cholecystitis, Pancreatitis, Zoster, this is not meant to be an all-inclusive list. EKG interpreted by me (3pts min.). @ -As above X-rays interpreted by me (1pt min.). @ -Chest X-ray reveals no obvious acute cardiopulmonary process CT interpreted by me (1pt min.). @ -None done U/S interpreted by me (1pt. min.). @ -None done What testing was considered but not performed or refused? (CT, X-rays, U/S, labs)? Why? @ -None What meds were considered but not given or refused? Why? @ -Sublingual nitroglycerin tabs were offered and ordered however patient refused, as her pain resolved. Did you discuss the management of the patient with other professionals (professionals i.e. , PA, TRAIN DIRECTOR, lab, RT, psych nurse, social science manager, serging machine operator automatic, teacher, [employer] officer, telephonic nurse case manager)? Give summary @ -No Was smoking cessation discussed for >3mins.? @ -No Was critical care preformed (if so, how long)? @ -No Were there social determinants of health that impacted care today? How? (Homelessness, low income, unemployed, alcoholism, drug addiction, transportation, low edu. Level, literacy, decrease access to med. care, fci, rehab)? @ -No Was there de-escalation of care discussed even if they declined (Discuss DNR or withdrawal of care, Hospice)? DNR status @ -No What co-morbidities impacted this encounter? (DM, HTN, Smoking, COPD, CAD, Cancer, CVA, ARF, Chemo, Hep., AIDS, mental health diagnosis, sleep apnea, morbi d obesity)? @ -CAD Was patient admitted / discharged? Hospital course, mention meds given and route, prescriptions, significant lab abnormalities, going to OR and other pertinent info. @ -Based on the patient's presentation and physical exam, I'm concerned for possible cardiac etiology for her current symptoms. We will obtain troponin labs. She was in agreement this plan. Vital signs within acceptable limits. She already received aspirin by EMS. She will receive a 1 L fluid bolus and I also offered her nitroglycerin tablets which he accepted initially. Patient did inform her that she did not take tablets as her chest pain self resolved. EKG shows no signs of acute ischemia. Chest x-ray shows no acute cardio pulmonary process. D-dimer within normal limits. Troponin undetectable. Remainder of labs within acceptable limits. I discussed results with the patient. Patient's heart score is elevated to 4. Based on risk factors, I do recommend admission to observation telemetry to monitor the patient's symptoms concerning they started less than 3 hours prior to arrival. Patient declines and states she'll leave AMA. The patient was apprised of the potential risks of leaving the hospital AGAINST MEDICAL ADVICE, including serious complications, permanent disability, and . At the time of my interview the patient, the patient was alert, oriented, and capable. Patient signed AMA form, which was witnessed and signed by nursing staff, and placed in patient's chart. I urged the patient to return to the hospital as soon as possible to complete evaluation and treatment. Undiagnosed new problem with uncertain prognosis? @ -No Drug Therapy requiring intensive monitoring for toxicity (Heparin, Nitro, Insulin, Cardizem)? @ -No Were any procedures done? @ -No Diagnosis/symptom? @ -Chest pain Acute, or Chronic, or Acute on Chronic? @ -Acute Uncomplicated (without systemic symptoms) or Complicated (systemic symptoms)? @ -Complicated Side effects of treatment? @ -No Exacerbation, Progression, or Severe Exacerbation? @ -No Poses a threat to life or bodily function? How? (Chest pain, [place], [place], pneumonia, PE, COPD, DKA, ARF, appy, cholecystitis, CVA, Diverticulitis, Homicidal, Suicidal, threat to staff... and all critical care pts) @ -Yes - Lab Data Result diagrams: 07/15/22 21:50 07/15/22 21:50 Lab Results 07/15/22 07/15/22 07/15/22 Range/Units 21:50 21:50 21:50 WBC 7.5 (3.8-10.6) k/uL RBC 4.32 (3.80-5.40) m/uL Hgb 12.1 (11.4-16.0) gm/dL Hct 37.0 (34.0-46.0) % MCV 85.5 (80.0-100.0) fL MCH 28.0 (25.0-35.0) pg MCHC 32.7 (31.0-37.0) g/dL RDW 13.7 (11.5-15.5) % Plt Count 156 (150-450) k/uL MPV 9.0 Neutrophils % 67 % Lymphocytes % 25 % Monocytes % 5 % Eosinophils % 1 % Basophils % 1 % Neutrophils # 5.0 (1.3-7.7) k/uL Lymphocytes # 1.9 (1.0-4.8) k/uL Monocytes # 0.4 (0-1.0) k/uL Eosinophils # 0.0 (0-0.7) k/uL Basophils # 0.0 (0-0.2) k/uL PT 10.3 (9.0-12.0) sec INR 1.0 (<1.2) APTT 23.5 (22.0-30.0) sec D-Dimer 0.33 (<0.60) mg/L FEU Sodium 139 (137-145) mmol/L Potassium 3.6 (3.5-5.1) mmol/L Chloride 105 (98-107) mmol/L Carbon Dioxide 24 (22-30) mmol/L Anion Gap 10 mmol/L BUN 19 H (7-17) mg/dL Creatinine 0.83 (0.52-1.04) mg/dL Est GFR (CKD-EPI)AfAm >90 (>60 ml/min/1.73 sqM) Est GFR (CKD-EPI)NonAf 81 (>60 ml/min/1.73 sqM) Glucose 112 H (74-99) mg/dL Calcium 10.2 (8.4-10.2) mg/dL Magnesium 1.5 L (1.6-2.3) mg/dL Total Bilirubin 0.4 (0.2-1.3) mg/dL AST 28 (14-36) U/L ALT 30 (4-34) U/L Alkaline Phosphatase 79 (38-126) U/L Troponin I (0.000-0.034) ng/mL Total Protein 6.6 (6.3-8.2) g/dL Albumin 4.3 (3.5-5.0) g/dL 07/15/22 Range/Units 21:50 WBC (3.8-10.6) k/uL RBC (3.80-5.40) m/uL Hgb (11.4-16.0) gm/dL Hct (34.0-46.0) % MCV (80.0-100.0) fL MCH (25.0-35.0) pg MCHC (31.0-37.0) g/dL RDW (11.5-15.5) % Plt Count (150-450) k/uL MPV Neutrophils % % Lymphocytes % % Monocytes % % Eosinophils % % Basophils % % Neutrophils # (1.3-7.7) k/uL Lymphocytes # (1.0-4.8) k/uL Monocytes # (0-1.0) k/uL Eosinophils # (0-0.7) k/uL Basophils # (0-0.2) k/uL PT (9.0-12.0) sec INR (<1.2) APTT (22.0-30.0) sec D-Dimer (<0.60) mg/L FEU Sodium (137-145) mmol/L Potassium (3.5-5.1) mmol/L Chloride (98-107) mmol/L Carbon Dioxide (22-30) mmol/L Anion Gap mmol/L BUN (7-17) mg/dL Creatinine (0.52-1.04) mg/dL Est GFR (CKD-EPI)AfAm (>60 ml/min/1.73 sqM) Est GFR (CKD-EPI)NonAf (>60 ml/min/1.73 sqM) Glucose (74-99) mg/dL Calcium (8.4-10.2) mg/dL Magnesium (1.6-2.3) mg/dL Total Bilirubin (0.2-1.3) mg/dL AST (14-36) U/L ALT (4-34) U/L Alkaline Phosphatase (38-126) U/L Troponin I <0.012 (0.000-0.034) ng/mL Total Protein (6.3-8.2) g/dL Albumin (3.5-5.0) g/dL - EKG Data -: EKG Interpreted by Me EKG Comments: 12-lead Electrocardiogram Interpretation Note EKG was reviewed and interpreted by myself. 12-lead ECG performed at 2159 is interpreted by me as revealing sinus tachycardia at a rate of 103 beats per minute. [place] is normal. DC interval is 169 ms, QRS duration is 86 seconds, QTC is 391 ms.. There were no ST or T wave abnormalities to suggest myocardial ischemia or injury. R wave progression across the precordium was satisfactory. By my interpretation this EKG is non-diagnostic for acute ischemia. When compared with EKG from 03/26/2022, no significant change. Disposition Clinical Impression: Chest pain, Left against medical advice Disposition: Left Against Medical Advice Instructions (If sedation given, give patient instructions): Chest Pain (ED) Is patient prescribed a controlled substance at d/c from ED?: No Referrals: Hellen Alves MD [Primary Care Provider] - 1-2 days Time of Disposition: 23:09
[2022-07-15 23:31] VITALS: BP 122/74; PULSE 90
== END 2022-07-15 23:39 | disposition left against medical advice (07) ==
LOC: EC 21:39
DX: R07.89 Other chest pain (principal); I10 Essential (primary) hypertension; F32.A Depression, unspecified; F17.200 Nicotine dependence, unspecified, uncomplicated; Z79.02 Long term (current) use of antithrombotics/antiplatelets; Z79.899 Other long term (current) drug therapy; Z88.8 Allergy status to other drugs, medicaments and biological substances; Z91.040 Latex allergy status; Z53.29 Procedure and treatment not carried out because of patient's decision for other reasons
CPT/HCPCS: 36415; 71046; 80053; 83735; 84484; 85025; 85379; 85610; 85730; 93005; 96360; 99285

== ENCOUNTER → 2023-04-10 | Day surgery (SDC) | payer OTHER ==
[2023-04-07 12:35] VITALS: BMI 20.3
[~2023-04-10] MED LIST changes: -DEXAMETHASONE SOD PHOSPHATE 4 MG/ML 1 ML VIAL IV ONE; -HYDROmorphone 0.5 MG/0.5 ML SYRINGE IVP PRN; -LACTATED RINGERS 1,000 ML IV SCH; -LIDOCAINE 1% (10MG/ML) FOR IV START INTRADERMA PRN; -ONDANSETRON 4 MG/2 ML VIAL IVP ONE; -SCOPOLAMINE 1.5MG/72HR PATCH TRANSDERM ONE; +SODIUM CHLORIDE 0.9% 1,000 ML IV SCH
[2023-04-10] MEDS: SODIUM CHLORIDE 0.9% 500 ML 500 ML IV ONE (10:11)
[2023-04-10 10:23] VITALS: BP 130/81; PULSE 68; RESP 16; TEMP 97.6
--- NOTE | 2023-04-10 17:07 | P.EPPROC ---
- EP Procedure Note Electrophysiology Procedure Note: Diagnosis Recurrent presyncope Twelve-lead EKG shows sinus rhythm normal [place] narrow QRS normal ST segments normal QT interval Tilt table test per protocol Baseline blood pressure 133/69 mmHg and heart rate 62 beats a minute Patient was tilted upright in angle of 70 degrees per protocol No significant change in heart rate or blood pressure Patient had multiple complaints such as feeling off balance, dizziness, head swelling and head spinning During all these symptomatic episodes her heart rate and blood pressure remained completely normal Impression normal twelve-lead EKG and normal heart rate and blood pressure response to upright tilting
== END ==
LOC: CATHEP 09:52
PROVIDERS: ATTEND Internal Medicine Clinical Cardiac Electrophysiology
DX: I25.10 Atherosclerotic heart disease of native coronary artery without angina pectoris (principal); E78.5 Hyperlipidemia, unspecified; I10 Essential (primary) hypertension; F17.200 Nicotine dependence, unspecified, uncomplicated; Z79.82 Long term (current) use of aspirin; Z79.02 Long term (current) use of antithrombotics/antiplatelets; Z79.899 Other long term (current) drug therapy; Z82.49 Family history of ischemic heart disease and other diseases of the circulatory system; Z88.8 Allergy status to other drugs, medicaments and biological substances; Z91.040 Latex allergy status; Z95.5 Presence of coronary angioplasty implant and graft
CPT/HCPCS: 93660

== ENCOUNTER 2024-06-18 12:07 | Emergency (ER) | payer BC, OTHER ==
[2024-06-18 12:15] VITALS: TEMP 98
--- NOTE | 2024-06-18 12:34 | ED ---
General Adult HPI - General Chief complaint: Eye Problems Stated complaint: Abn sweating Time Seen by Provider: 06/18/24 12:24 Source: patient, RN notes reviewed, old records reviewed Mode of arrival: ambulatory - History of Present Illness Initial comments: 53-year-old female presenting for evaluation of chills and sweating. Patient states symptoms have been present for the past several days. She has had a mild dry cough. She has no abdominal pain. She has had nausea. She has not had a measured temperature but has felt that she has had a fever. She has also had a headache and pain behind the left eye. She denies urinary symptoms. Denies sore throat. Denies known sick contacts. Patient states she had previously gone through menopause. - Related Data Home Medications Medication Instructions Recorded Confirmed Pregabalin [Lyrica] 300 mg PO HS 03/26/22 04/10/23 Clopidogrel [Plavix] 75 mg PO DAILY 07/15/22 04/10/23 Sertraline [Zoloft] 150 mg PO DAILY 07/15/22 04/10/23 Rosuvastatin Calcium 10 mg PO HS 03/18/23 04/10/23 Previous Rx's Medication Instructions Recorded Aspirin 81 mg PO DAILY #30 tab 03/28/22 Allergies Allergy/AdvReac Type Severity Reaction Status Date / Time amlodipine [From Norvasc] Allergy Swelling - Verified 06/18/24 12:15 face latex Allergy Rash/Hives Verified 06/18/24 12:15 losartan [From Cozaar] Allergy Swelling - Verified 06/18/24 12:15 face tamsulosin [From Flomax] Allergy FACIAL Verified 06/18/24 12:15 SWELLING AND SLURRING SPEECH buspirone [From BuSpar] AdvReac Increased Verified 06/18/24 12:15 Anxiety lisinopril AdvReac Cough Verified 06/18/24 12:15 Review of Systems ROS Statement: Those systems with pertinent positive or pertinent negative responses have been documented in the HPI. ROS Other: All systems not noted in ROS Statement are negative. Past Medical History Past Medical History: Fibromyalgia, Hyperlipidemia, Hypertension, Myocardial Infarction ([place]), Syncope Additional Past Medical History / Comment(s): IBS. POSS [place] 03/27/22. KIDNEY STONE Last Myocardial Infarction Date:: 03/27/22 History of Any Multi-Drug Resistant Organisms: None Reported Past Surgical History: Heart Catheterization, Heart Catheterization With Stent, Orthopedic Surgery Additional Past Surgical History / Comment(s): PYLORIC STENOSIS REPAIR INFANT. BILAT EYE SURGERIES FOR LAZY EYE ,SALIVARY GLAND REMOVED FROM THROAT- 2000. BILAT SHOULDER SURGERIES FOR BONE SPURS. RT KIDNEY STONE, REPAIR RT ARM LABRIUM TEAR. COLONOSCOPY Past Anesthesia/Blood Transfusion Reactions: No Reported Reaction Date of Last Stent Placement:: 03/27/2022 Past Psychological History: Depression Smoking Status: Current every day smoker Past Alcohol Use History: None Reported, Occasional Past Drug Use History: Marijuana - Past Family History Mother Family Medical History: No Reported History General Exam General appearance: alert, in no apparent distress Head exam: Present: atraumatic, normocephalic Eye exam: Present: normal appearance, PERRL ENT exam: Present: normal exam, normal oropharynx Neck exam: Present: normal inspection, tenderness Respiratory exam: Present: normal lung sounds bilaterally. Absent: respiratory distress, wheezes Cardiovascular Exam: Present: regular rate, normal rhythm GI/Abdominal exam: Present: soft. Absent: distended, tenderness Neurological exam: Present: alert, oriented X3, CN II-XII intact. Absent: motor sensory deficit Psychiatric exam: Present: normal affect, normal mood Skin exam: Present: warm Course Vital Signs 06/18/24 12:09 Temperature 98 F Pulse Rate 88 Respiratory 18 Rate Blood Pressure 167/83 O2 Sat by Pulse 100 Oximetry Medical Decision Making - Medical Decision Making Was pt. sent in by a medical professional or institution (, PA, SPACE AND STORAGE CLERK, urgent care, hospital, or senior care...) When possible be specific @ -No Did you speak to anyone other than the patient for history (EMS, parent, family, police, friend...)? What history was obtained from this source @ -No Did you review nursing and triage notes (agree or disagree)? Why? @ -I reviewed and agree with nursing and triage notes Were old charts reviewed (outside hosp., previous admission, EMS record, old EKG, old radiological studies, urgent care reports/EKG's, senior care records)? Report findings @ -No old charts were reviewed Differential Diagnosis (chest pain, altered mental status, abdominal pain women, abdominal pain men, vaginal bleeding, weakness, fever, dyspnea, syncope, headache, dizziness, GI bleed, back pain, seizure, CVA, palpatations, mental health, musculoskeletal)? @ -Not applicable EKG interpreted by me (3pts min.). @ -[EKG: Sinus rhythm ventricular rate of 74, DC interval 193, QRS duration 83, QTc 402 X-rays interpreted by me (1pt min.). @ -Chest x-ray negative for consolidated pneumonia, no acute findings CT interpreted by me (1pt min.). @ -CT showing no acute intracranial hemorrhage or mass effect, persistent meningioma which is known to the patient U/S interpreted by me (1pt. min.). @ -None done What testing was considered but not performed or refused? (CT, X-rays, U/S, labs)? Why? @ -None What meds were considered but not given or refused? Why? @ -None Did you discuss the management of the patient with other professionals (professionals i.e. , PA, SPACE AND STORAGE CLERK, lab, RT, psych nurse, neonatal social worker, dock boss, teacher, student liaison officer, embedded case manager)? Give summary @ -No Was smoking cessation discussed for >3mins.? @ -No Was critical care preformed (if so, how long)? @ -No Were there social determinants of health that impacted care today? How? (Homelessness, low income, unemployed, alcoholism, drug addiction, transportation, low edu. Level, literacy, decrease access to med. care, halfway, rehab)? @ -No Was there de-escalation of care discussed even if they declined (Discuss DNR or withdrawal of care, Hospice)? DNR status @ -No What co-morbidities impacted this encounter? (DM, HTN, Smoking, COPD, CAD, Cancer, CVA, ARF, Chemo, Hep., AIDS, mental health diagnosis, sleep apnea, morbid obesity)? @ -None Was patient admitted / discharged? Hospital course, mention meds given and route, prescriptions, significant lab abnormalities, going to OR and other pertinent info. @ -53-year-old female presenting with subjective fever chills, sweating. Mild cough. Patient does not have any consolidated pneumonia on x-ray. She has normal white blood cell count, mildly elevated hemoglobin, normal electrolytes with the exception of a mildly elevated calcium at 11. She has no signs of urinalysis, viral panel is negative. She did complain of some left eye pain, he ad CT was ordered which was negative for acute process and I did obtain intraocular pressure in both eyes he was 18 bilaterally. She has no proptosis. No swelling about the eye, normal extraocular movements. Urinalysis is unremarkable. Patient will monitor symptoms and follow-up with her primary care provider. Suspect viral infection at this time. Undiagnosed new problem with uncertain prognosis? @ -No Drug Therapy requiring intensive monitoring for toxicity (Heparin, Nitro, Insulin, Cardizem)? @ -No Were any procedures done? @ -No Diagnosis/symptom? @ -Fever and chills Acute, or Chronic, or Acute on Chronic? @ -[acute Uncomplicated (without systemic symptoms) or Complicated (systemic symptoms)? @ -Default Side effects of treatment? @ -No Exacerbation, Progression, or Severe Exacerbation? @ -No Poses a threat to life or bodily function? How? (Chest pain, [place], [place], pneumonia, PE, COPD, DKA, ARF, appy, cholecystitis, CVA, Diverticulitis, Homicidal, Suicidal, threat to staff... and all critical care pts) @ -No - Lab Data Result diagrams: 06/18/24 12:49 06/18/24 12:49 Lab Results 06/18/24 06/18/24 06/18/24 Range/Units 12:49 12:49 12:49 WBC 5.92 (4.50-10.00) 10*3/uL RBC 5.48 H (4.10-5.20) 10*6/uL Hgb 15.3 H (12.0-15.0) g/dL Hct 46.7 H (37.2-46.3) % MCV 85.2 (80.0-97.0) fL MCH 27.9 (27.0-32.0) pg MCHC 32.8 (32.0-37.0) g/dL Plt Count 213 (140-440) 10*3/uL MPV 11.0 (9.5-12.2) fL Immature Gran % (Auto) 0.3 % Neutrophils % 71.4 % Lymphocytes % 20.1 % Monocytes % 6.8 % Eosinophils % 0.7 % Basophils % 0.7 % Immature Gran # 0.02 (0.00-0.04) 10*3/uL Neutrophils # 4.23 (1.80-7.70) 10*3/uL Lymphocytes # 1.19 (0.90-5.00) 10*3/uL Monocytes # 0.40 (0.20-1.00) 10*3/uL Eosinophils # 0.04 (0.04-0.35) 10*3/uL Basophils # 0.04 (0.00-0.10) 10*3/uL Sodium 142 (137-145) mmol/L Potassium 4.3 (3.5-5.1) mmol/L Chloride 104 (98-107) mmol/L Carbon Dioxide 25 (22-30) mmol/L Anion Gap 13 mmol/L BUN 11 (7-17) mg/dL Creatinine 0.73 (0.52-1.04) mg/dL Est GFR (CKD-EPI)AfAm >90 (>60 ml/min/1.73 sqM) Est GFR (CKD-EPI)NonAf >90 (>60 ml/min/1.73 sqM) Glucose 112 H (74-99) mg/dL Lactic Ac Sepsis Rflx Plasma Lactic Acid Joey 2.3 H* (0.7-2.0) mmol/L Calcium 11.0 H (8.4-10.2) mg/dL Total Bilirubin 0.8 (0.2-1.3) mg/dL AST 34 (14-36) U/L ALT 32 (4-34) U/L Alkaline Phosphatase 79 (38-126) U/L C-Reactive Protein <0.5 (<1.0) mg/dL Total Protein 7.7 (6.3-8.2) g/dL Albumin 4.9 (3.5-5.0) g/dL Urine Color Urine Appearance (Clear) Urine pH (5.0-8.0) Ur Specific [place] (1.001-1.035) Urine Protein (Negative) Urine Glucose (UA) (Negative) Urine Ketones (Negative) Urine Blood (Negative) Urine Nitrite (Negative) Urine Bilirubin (Negative) Urine Urobilinogen (<2.0) mg/dL Ur Leukocyte Esterase (Negative) Influenza Type A (PCR) (Not Detectd) Influenza Type B (PCR) (Not Detectd) RSV (PCR) (Not Detectd) SARS-CoV-2 (PCR) (Not Detectd) 06/18/24 06/18/24 06/18/24 Range/Units 12:49 13:40 14:14 WBC (4.50-10.00) 10*3/uL RBC (4.10-5.20) 10*6/uL Hgb (12.0-15.0) g/dL Hct (37.2-46.3) % MCV (80.0-97.0) fL MCH (27.0-32.0) pg MCHC (32.0-37.0) g/dL Plt Count (140-440) 10*3/uL MPV (9.5-12.2) fL Immature Gran % (Auto) % Neutrophils % % Lymphocytes % % Monocytes % % Eosinophils % % Basophils % % Immature Gran # (0.00-0.04) 10*3/uL Neutrophils # (1.80-7.70) 10*3/uL Lymphocytes # (0.90-5.00) 10*3/uL Monocytes # (0.20-1.00) 10*3/uL Eosinophils # (0.04-0.35) 10*3/uL Basophils # (0.00-0.10) 10*3/uL Sodium (137-145) mmol/L Potassium (3.5-5.1) mmol/L Chloride (98-107) mmol/L Carbon Dioxide (22-30) mmol/L Anion Gap mmol/L BUN (7-17) mg/dL Creatinine (0.52-1.04) mg/dL Est GFR (CKD-EPI)AfAm (>60 ml/min/1.73 sqM) Est GFR (CKD-EPI)NonAf (>60 ml/min/1.73 sqM) Glucose (74-99) mg/dL Lactic Ac Sepsis Rflx Y Plasma Lactic Acid Joey (0.7-2.0) mmol/L Calcium (8.4-10.2) mg/dL Total Bilirubin (0.2-1.3) mg/dL AST (14-36) U/L ALT (4-34) U/L Alkaline Phosphatase (38-126) U/L C-Reactive Protein (<1.0) mg/dL Total Protein (6.3-8.2) g/dL Albumin (3.5-5.0) g/dL Urine Color Colorless Urine Appearance Clear (Clear) Urine pH 6.5 (5.0-8.0) Ur Specific [place] 1.008 (1.001-1.035) Urine Protein Negative (Negative) Urine Glucose (UA) Negative (Negative) Urine Ketones Negative (Negative) Urine Blood Negative (Negative) Urine Nitrite Negative (Negative) Urine Bilirubin Negative (Negative) Urine Urobilinogen <2.0 (<2.0) mg/dL Ur Leukocyte Esterase Negative (Negative) Influenza Type A (PCR) Not Detected (Not Detectd) Influenza Type B (PCR) Not Detected (Not Detectd) RSV (PCR) Not Detected (Not Detectd) SARS-CoV-2 (PCR) Not Detected (Not Detectd) Disposition Clinical Impression: Chills Disposition: HOME SELF-CARE Condition: Fair Instructions (If sedation given, give patient instructions): Viral Syndrome (ED) Is patient prescribed a controlled substance at d/c from ED?: No Referrals: Hellen Alves MD [Primary Care Provider] - 1-2 days Time of Disposition: 15:55
[2024-06-18 13:19] LABS: Basophils # (A) 0.04 10*3/uL (0.00-0.10); Basophils % (A) 0.7 %; Eosinophils # (A) 0.04 10*3/uL (0.04-0.35); Eosinophils % (A) 0.7 %; HCT 46.7 % (37.2-46.3); HGB 15.3 g/dL (12.0-15.0); Lymphocytes # (A) 1.19 10*3/uL (0.90-5.00); Lymphocytes % (A) 20.1 %; MCH 27.9 pg (27.0-32.0); MCHC 32.8 g/dL (32.0-37.0); MCV 85.2 fL (80.0-97.0); Monocytes % (A) 6.8 %; Neutrophils # (A) 4.23 10*3/uL (1.80-7.70); Neutrophils % (A) 71.4 %; Platelet Count 213 10*3/uL (140-440); RBC 5.48 10*6/uL (4.10-5.20); WBC 5.92 10*3/uL (4.50-10.00)
[2024-06-18] MEDS: ONDANSETRON 4 MG/2 ML VIAL IVP STA (13:20)
[2024-06-18] MEDS: LACTATED RINGERS 1,000 ML IV ONE (13:21)
[2024-06-18] MEDS: ACETAMINOPHEN IV (For NPO) 1,000 MG in EMPTY BAG 1 BAG IVPB STA (13:21)
[2024-06-18 13:26] LABS: ALT 32 U/L (4-34); AST 34 U/L (14-36); African American GFR (CKD) >90 (>60 ml/min/1.73 sqM); Albumin 4.9 g/dL (3.5-5.0); Alkaline Phosphatase 79 U/L (38-126); Anion Gap 13 mmol/L; Blood Urea Nitrogen 11 mg/dL (7-17); C Reactive Protein <0.5 mg/dL (<1.0); Carbon Dioxide 25 mmol/L (22-30); Chloride 104 mmol/L (98-107); Glucose 112 mg/dL (74-99); Non-African American GFR(CKD) >90 (>60 ml/min/1.73 sqM); Potassium 4.3 mmol/L (3.5-5.1); Sodium 142 mmol/L (137-145); Total Bilirubin 0.8 mg/dL (0.2-1.3); Total Protein 7.7 g/dL (6.3-8.2)
[2024-06-18 13:50] LABS: Influenza A Not Detected (Not Detectd); Influenza B Not Detected (Not Detectd); RSV Not Detected (Not Detectd)
--- NOTE | 2024-06-18 14:22 | CT ---
EXAMINATION TYPE: CT brain wo con DATE OF EXAM: 06/18/2024 2:04 PM COMPARISON: None . CLINICAL INDICATION: Female, 53 years old with history of CASANOVA, HEADACHE TECHNIQUE: Brain: Axial CT images of the brain were obtained with coronal and sagittal reformats created and rev iewed. Contrast used: None. Oral contrast used: None. CT DLP: 1119.4 mGycm, Automated exposure control for dose reduction was used. FINDINGS: Brain: Extra-axial spaces: No abnormal extra-axial fluid collections. Extra-axial lesion along the left late ral calvarium measuring up to 17 x 11 mm. Ventricular system: Within normal limits Cerebral parenchyma: No acute intraparenchymal hemorrhage or mass effect. The vogt-white junction is well differentiated. Cerebellum: Unremarkable. Mass effect: No evidence of midline shift. Intracranial vasculature: Atherosclerotic calcifications of the intracranial vessels. Soft tissues: Normal. Calvarium/osseous structures: No depressed skull fracture. Paranasal sinuses and mastoid air cells: Mild scattered paranasal sinus disease. Visualized orbits: Orbital contents are intact. IMPRESSION: 1. No acute intracranial process. 2. Left extra-axial mass possibly meningioma measuring 17 x 11 mm. Further evaluation MRI with contr ast is recommended. [facility], , 06/18/2024 2:20 PM
[2024-06-18 14:25] LABS: Appearance,Urine Clear (Clear); Bilirubin,Urine Negative (Negative); Blood,Urine Negative (Negative); Color,Urine Colorless; Glucose,Urine (UA) Negative (Negative); Ketones,Urine Negative (Negative); Leukocyte Esterase,Urine Negative (Negative); Nitrite,Urine Negative (Negative); PH, Urine 6.5 (5.0-8.0); Protein,Urine Negative (Negative); Specific Gravity,Urine 1.008 (1.001-1.035); Urobilinogen,Urine <2.0 mg/dL (<2.0)
--- NOTE | 2024-06-18 14:46 | XR ---
EXAMINATION TYPE: XR chest 2V DATE OF EXAM: 06/18/2024 2:05 PM COMPARISON: 07/15/2022 CLINICAL INDICATION: Female, 53 years old with history of fever, TECHNIQUE: XR chest 2V view(s) obtained. FINDINGS: The heart size is normal. The pulmonary vasculature is normal. The lungs are clear. IMPRESSION: 1. No acute pulmonary process. [facility], Workstation: [facility], 06/18/2024 2:44 PM
[2024-06-18 16:20] VITALS: BP 165/85; PULSE 70; RESP 16
[2024-06-18 19:34] LABS: Erythrocyte Sedimentation Rate 16 mm/Hr (0-30)
== END 2024-06-18 16:19 | disposition home or self-care (01) ==
LOC: EC 12:07
DX: R50.9 Fever, unspecified (principal); F17.200 Nicotine dependence, unspecified, uncomplicated; Z91.040 Latex allergy status; Z88.8 Allergy status to other drugs, medicaments and biological substances
CPT/HCPCS: 36415; 93005; 80053; 85652; 83605; 85025; 86140; 81003; 87040; 87636; 71046; 70450; 99284; 96365; 96375; J2405; J0131